=== PATIENT | female | born 2000 | race Caucasian/White ===

== ENCOUNTER 2023-07-23 01:50 | Emergency (ER) | payer OTHER, SELFPAY ==
[2023-07-23 02:01] VITALS: BP 122/71; BP 162/100; PULSE 92; PULSE 93; RESP 20; TEMP 36.6; O2SAT 97; O2SAT 98; BMI 27.6
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
[2023-07-23] MEDS: ondansetron HCL 4 MG/2 ML VIAL IVPUSH (02:39)
[2023-07-23] MEDS: Ketorolac Tromethamine 30 MG/ML VIAL IVPUSH (02:39)
--- NOTE | 2023-07-23 03:40 | PC.NURSE ---
ambulated with steady gait
== END 2023-07-23 03:40 | disposition home or self-care (01) ==
PROVIDERS: Emergency Provider Internal Medicine; PCP Pediatrics Adolescent Medicine
DX: Z04.1 Encounter for examination and observation following transport accident (principal); M79.18 Myalgia, other site
CPT/HCPCS: 96374; 96375; 99284; J1885; J2405